=== PATIENT | male | born 1995 | race Two or more races ===

== ENCOUNTER 2023-07-24 10:06 | Emergency (ER) | payer MEDICAID, OTHER ==
[~2023-07-24] VITALS: Ht 175.3 cm; Wt 84.0 kg
[2023-07-24 11:13] VITALS: BP 124/84; PULSE 94; TEMP 98.6
[2023-07-24] MEDS ORDERED: ALBUTEROL SULF 2.5 MG/0.5ML(0.5%) NEB SOLN NEB ONE (11:30)
[2023-07-24] MEDS ORDERED: IPRATROPIUM BROM 0.5 MG/2.5ML INH SOL NEB ONE (11:30)
[2023-07-24 11:47] VITALS: RESP 16; O2SAT 99
[2023-07-24] MEDS ORDERED: AMOX875T3 PO (11:54)
[2023-07-24] MEDS ORDERED: ALBU108A5 IN (11:54)
== END 2023-07-24 12:20 | disposition home or self-care (01) ==
LOC: EDBD 10:06 → ER 10:06
DX: J45.901 Unspecified asthma with (acute) exacerbation (principal); H66.91 Otitis media, unspecified, right ear
CPT/HCPCS: 94640; 99283; J7644